=== PATIENT | female | born 1980 | race American Indian/Alaskan Native ===

== ENCOUNTER 2016-12-20 05:39 | Inpatient (IN) | payer BC, MEDICAID ==
--- NOTE | 2016-12-19 17:30 | History and Physical Report ---
History of Present Illness Date of examination: 12/18/16 Date of admission: 12/20/2016 Chief complaint: here for repeat c/s History of present illness: Pt here for repeat c/s. No c/o at this time. All risk, benefits,and alternatives were d/w pt and questions were addressed and answered. Consents signed and placed on the chart. pt does not desires to have a BTL at this time. EDC Calculations LMP: 12/26/2016 EDC Confirmation: 12/26/2016 Gestational Age: 16 3/7 weeks Past History : 3 Term Births: 1 Premature Births: 0 Living Children: 1 Para: 1 Mult. Births: 0 Prev : 1 Prev. attempt? 0 Aborta: 1 Elect. Ab: 0 Spont. Ab: 1 Ectopics: 0 # 1 Delivery date: 05/17/2003 Delivery type: Delivery location: [place] Sex: Female weight: 6-0 Comments: failure to dilate # 2 Delivery date: 08/12/2015 Weeks Gestation: 8 Delivery type: SAB Delivery location: [facility] Comments: D&C done Past Medical History: Dermoid cyst Past Surgical History: Reviewed history from 08/12/2015 and no changes required: Salpingo-oophorectomy(R) dermoid (L) partial oophorectomy dermoid D&C: (08/12/2015) Past Medical History Abnormal PAP: negative ROSE Exposure: negative Infertility: negative Uterine Anomaly: negative Uterine Surgery (not C/S): negative Other Gynecologic Problems: negative Social Hx: Patient is single Smoking History: Patient has never smoked. Infection History Personal hx. of genital herpes: yes Partner hx. of genital herpes: yes Genetic History Congenital Heart Defect: Mom: no Dad: no Duane Disease: Mom: no Dad: no Thalassemia Mom: no Dad: no Neural Tube Defect Mom: no Dad: no Down's Syndrome Mom: no Dad: no Issa-Sachs Mom: no Dad: no Sickle Cell Disease/Trait Mom: no Dad: no Hemophilia Mom: no Dad: no Muscular Dystrophy Mom: no Dad: no Cystic Fibrosis Mom: no Dad: no Bergheim Chorea Mom: no Dad: no Mental Retardation Mom: no Dad: no Fragile X Mom: no Dad: no Other Genetic/Chromosomal Disorder Mom: no Dad: no Child w/other defect Mom: no Dad: no Enviromental Exposures Xray Exposure: no Chemical/Other Exposure: no Exposure to Cat Liter: no Active Medications (reviewed today): VITAMIN TABS ( VIT-FE FUMARATE-FA TABS) Current Allergies: No known allergies Past History Past Medical History: other (dermoid cyst) Past Surgical History: section, other (oopherectomy x1, cystectomy, c/ s x1) 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 Family/Genetic History: other (see hpi) Social history: no significant social history, - Obstetrical History Expected Date of Delivery: 12/26/16 Actual Gestation: 39 Week(s) 0 Day(s) : 3 Para: 1 Spontaneous Abortions: 1 Number of Living Children: 1 Medications and Allergies Allergies Allergy/AdvReac Type Severity Reaction Status Date / Time No Known Allergies Allergy Verified 07/11/13 10:49 Home Medications Medication Instructions Recorded Confirmed Last Taken Type No Known Home Medications [No 08/12/15 08/12/15 Unknown History Reported Home Medications] Active Meds: Active Medications Citric Acid/Sodium Citrate (Bicitra) 30 ml PO ONCE ONE Stop: 12/20/16 05:01 Famotidine (Pepcid) 20 mg IV ONCE ONE Stop: 12/20/16 05:01 Cefazolin Sodium (Ancef/Sterile Water 2 Gm/20 Ml) 2 gm in 20 mls @ 80 mls/hr IV PREOP NR PRN Reason: Protocol Lactated Ringer's (Lactated Ringers) 1,000 mls @ 2,250 mls/hr IV PREOP YO Stop: 12/20/16 18:27 Review of Systems All systems: negative - Physical Exam Cardiovascular: Normal S1, Normal S2 Lungs: Positive: Normal air movement Abdomen: Positive: normal appearance, soft. Negative: distention, tenderness, guarding Genitourinary (Female): Positive: other (deferred) Extremities: Positive: normal. Negative: tenderness, edema - Obstetrical FHR: auscultation normal Results All other labs normal. Assessment and Plan - Patient Problems (1) 39 weeks gestation of Status: Acute (2) Previous section complicating Status: Acute Plan to address problem: -admit -prepare for c/s
[~2016-12-20 05:39] MED LIST: ANCEF/STERILE WATER 2 GM/20 ML 2 GM/20 ML SYRINGE IV NR
[2016-12-20] MEDS ORDERED: REGLAN IV ONE (05:45)
[2016-12-20] MEDS ORDERED: PEPCID IV ONE (05:45)
[2016-12-20] MEDS ORDERED: BICITRA PO ONE (05:45)
[2016-12-20] MEDS ORDERED: PITOCin/NS 20 UNIT/1000ML DRIP 20 UNITS/1,000 ML BAG IV SCH (06:00)
[2016-12-20 06:31] LABS: Basophils % (Auto) 0.2 % (0.0-1.8); Eosinophils % (Auto) 1.8 % (0.0-4.3); Hematocrit 37.1 % (30.3-42.9); Hemoglobin 12.5 gm/dl (10.1-14.3); Mean Corpuscular HGB Conc 34 % (30-34); Mean Corpuscular Hemoglobin 33 pg (28-32); Mean Corpuscular Volume 99 fl (79-97); Platelet Count 138 K/mm3 (140-440); Red Blood Count 3.76 M/mm3 (3.65-5.03); Red Cell Distribution Width 14.7 % (13.2-15.2); White Blood Count 7.2 K/mm3 (4.5-11.0)
[2016-12-20] MEDS: LACTATED RINGERS 1,000 ML IV SCH ×3 (06:56→07:37)
--- NOTE | 2016-12-20 07:17 | Anesthesia Consultation ---
Anesthesia Consult and Med Hx Date of service: 12/20/16 - Airway Anesthetic Teeth Evaluation: Good ROM Head & Neck: Adequate Mental/Hyoid Distance: Adequate Mallampati Class: Class II Intubation Access Assessment: Probably Good - Pre-Operative Health Status ASA Pre-Surgery Classification: ASA2 Proposed Anesthetic Plan: Epidural, Spinal - Pulmonary Hx Smoking: Yes Hx Asthma: No (Pt uses inhaler when sick) COPD: No Hx Pneumonia: No Hx Sleep Apnea: No - Cardiovascular System Hx Hypertension: No - Central Nervous System Hx Seizures: No Hx Psychiatric Problems: No - Endocrine Hx Renal Disease: No Hx End Stage Renal Disease: No Hx Hypothyroidism: No Hx Hyperthyroidism: No - Hematic Hx Anemia: No Hx Sickle Cell Disease: No - Other Systems Hx Cancer: No
--- NOTE | 2016-12-20 07:18 | Anesthesia Day of Surgery ---
Anesthesia Day of Surgery - Day of Surgery Patient Examined: Yes Patient H&P Reviewed: Yes Patient is NPO: Yes
[2016-12-20] MEDS ORDERED: MORPHINE ONE (07:43)
[2016-12-20] MEDS ORDERED: WATER FOR IRRIG STERILE IR ONE (07:50)
[2016-12-20] MEDS ORDERED: NACL 0.9% IR ONE (07:50)
[2016-12-20] MEDS ORDERED: BENADRYL IV PRN (08:00)
[2016-12-20] MEDS ORDERED: ZOFRAN IV PRN (08:00)
[2016-12-20] MEDS ORDERED: SODIUM CHLORIDE FLUSH SYRINGE 10 ML IV PRN (08:00)
[2016-12-20] MEDS ORDERED: NARCAN 0.4 MG/1 ML IV PRN (08:00)
[2016-12-20] MEDS ORDERED: PHENERGAN PR PRN (08:00)
[2016-12-20] MEDS ORDERED: NACL 0.9% 1000 ML 1,000 ML ONE (08:48)
[2016-12-20] MEDS ORDERED: NEO SYNEPHRINE/NS Syringe(OR USE) IV ONE (09:00)
--- NOTE | 2016-12-20 09:00 | Operative Report ---
Operative Report Operative Report: Date of procedure: 12/20/2016 Pre-operative diagnosis: 39 weeks gestation Previous section Post-operative diagnosis: Same Procedure name(s): Repeat low transverse section via Pfannenstiel skin incision Surgeon: Dr. Miguel Economic Research Assistant: RIGO Anesthesia: Epidural EBL: 600 mL Urine output: 250 mL of clear urine out at the end of the procedure Fluids: 1500 mL Findings: Liveborn male weight 7 lbs. 14 oz. Apgars of 8 and 9 at one and 5 minutes 2 cm pedunculated fibroid on anterior surface of the uterus Grossly normal fallopian tubes and ovaries bilaterally Indications: Patient presents for repeat section. All risks benefits and alternatives were discussed with the patient. Consents were signed and placed on the chart. Procedure: Patient was taking to the operating room. Patient was then prepped and draped in sterile fashion after anesthesia was found to be adequate. A low transverse skin incision was made with the scalpel through previous incisional scar and carried down to the underlying layer of fascia with the Bovie. The fascia was then incised in the midline and this incision was extended bilaterally with the Bovie. The superior aspect of the fascia was grasped with Jillian clamps tented upward and dissected off of the anterior rectus muscles with the scalpel. In similar fashion the inferior aspect of the fascia was grasped with Jillian clamps tented upward and dissected off of the anterior rectus muscles. The rectus muscles were then sharply divided in the midline. The peritoneum was identified and entered into sharply. The Baljeet retractor was placed The bladder blade was placed. A lower transverse uterine incision was made with the scalpel and extended bilaterally with the bandage scissors. Artificial rupture of membranes was performed yielding clear amniotic fluid. The 's head was then delivered atraumatically. The anterior shoulder and rest of infant delivered without difficulty. The umbilical cord was clamped x2. The cord was cut. The was then placed in sterile bassinet. The cord blood not was collected. The placenta was manually extracted in its entirety. The uterus was exteriorized and cleared of all clots and debris. The uterine incision was closed using 0 Vicryl in a running locking fashion. [id number] sutures were used along the incision line to secure excellent hemostasis. Tisseel was placed along the incision with excellent hemostasis noted. The posterior cul-de-sac was copiously irrigated. The uterus was returned to the abdomen. The gutters were also irrigated. The anterior rectus muscles were reapproximated using 3-0 Vicryl. The anterior rectus fascia was reapproximated using 0 Vicryl in a running fashion. The subcuticular fat was reapproximated using 2-0 Vicryl in a running fashion. The skin was reapproximated with 4-0 Monocryl in a subcuticular stitch. The patient tolerated the procedure well. Sponge lap and needle counts were all correct x3. Patient was taken to the recovery room awake and in stable condition.
[2016-12-20] MEDS ORDERED: TORADOL IV PRN (09:30)
[2016-12-20] MEDS ORDERED: LANSINOH TP PRN (09:30)
[2016-12-20] MEDS ORDERED: TUCKS PAD TP PRN (09:30)
[2016-12-20] MEDS: DILAUDID IV PRN (11:55)
[2016-12-20] MEDS: ANCEF/NS 1 GM/50 ML 1 GM/50 ML BAG IV SCH ×2 (16:00→23:54)
[2016-12-20] MEDS ORDERED: D5LR 1,000 ML IV ONE (16:10)
[2016-12-20] MEDS ORDERED: D5LR 1,000 ML IV SCH (19:00)
[2016-12-20 21:20] LABS: Hematocrit 34.6 % (30.3-42.9); Hemoglobin 11.8 gm/dl (10.1-14.3)
[2016-12-21] MEDS: DILAUDID IV PRN (00:09)
[2016-12-21] MEDS ORDERED: BENADRYL PO PRN (02:42)
[2016-12-21] MEDS ORDERED: BENADRYL PO ONE (03:00)
[2016-12-21] MEDS ORDERED: BOOSTRIX IM ONE (06:00)
--- NOTE | 2016-12-21 06:56 | Progress Note ---
Assessment and Plan - Patient Problems (1) delivery delivered Onset Date: ~12/20/16 Current Visit: Yes Status: Acute Plan to address problem: pt w/o complaint VSS FF below umb Lochia small Dressing D&I H&H drop r/t blood loss from delivery No evidence anemia Doing well s/p repeat c/s P: Continue pathway Advance diet and activity as tolerated Subjective - Subjective Date of service: 12/21/16 (pt resting w/o complaint) Principal diagnosis: Day # 1 s/p repeat section Patient reports: appetite normal, voiding normally, pain well controlled, ambulating normally [place]: doing well Objective - Vital Signs Latest vital signs: Vital Signs Temp Pulse Resp BP BP Pulse Ox 12/21/16 01:05 98.3 F 60 18 100/67 12/20/16 21:20 97.9 F 61 18 102/61 12/20/16 16:45 97.9 F 78 20 100/69 12/20/16 10:15 97.9 F 58 L 20 99/64 12/20/16 10:09 90 107/69 12/20/16 10:00 57 L 10 L 101/65 96 12/20/16 09:55 56 L 13 103/62 99 12/20/16 09:49 58 L 9 L 103/65 99 12/20/16 09:43 56 L 13 109/57 100 12/20/16 09:37 67 10 L 109/67 99 12/20/16 09:31 64 10 L 107/64 99 12/20/16 09:25 73 10 L 111/65 100 12/20/16 09:20 68 12 108/60 100 12/20/16 09:15 65 14 105/60 97 12/20/16 09:10 65 14 107/60 98 12/20/16 09:05 68 15 105/55 97 12/20/16 09:00 99 12/20/16 08:58 97.6 F 66 16 89/47 100 12/20/16 07:10 80 97 12/20/16 07:05 76 97 12/20/16 07:00 79 94 12/20/16 06:55 84 97 Intake and Output 12/20/16 12/20/16 12/21/16 14:59 22:59 06:59 Intake Total 3337.5 650 Output Total 350 1500 Balance 2987.5 -850 Intake: IV 3337.5 50 ANCEF/NS 1 GM/50 ML 1 gm 50 In 50 ml @ 100 mls/hr IV Q8H YO Rx#:[id number] Lactated Ringers 1,000 ml 1537.5 @ 2250 mls/hr IV PREOP YO Rx#:[id number] Oral 600 Output: Urine 350 1500 Indwelling Catheter 1500 Other: Total, Intake Amount 240 Total, Output Amount 900 Estimated Blood Loss 600 - Exam Breasts: Present: normal Cardiovascular: Present: Regular rate Lungs: Present: Normal air movement Abdomen: Present: normal appearance, soft, normal bowel sounds Uterus: Present: normal, fundal height below umbilicus Extremities: Present: normal Deep Tendon Reflex Grade: Normal +2 Incision: Present: normal, dry, intact, dressed (to be removed today)
[2016-12-21] MEDS: MOTRIN PO PRN ×2 (10:14→16:22)
[2016-12-21] MEDS: NORCO 5/325 PO PRN ×2 (10:14→16:21)
--- NOTE | 2016-12-21 14:16 | Progress Note ---
Subjective Date of service: 12/21/16 Principal diagnosis: Day # 1 s/p repeat section Interval history: 1st POD after Patient is in the bed, comfortable. Pain is well controlled with pain meds. Ambulated well. No residual neurological deficit. No pruritus. No anesthesia complications Objective - Constitutional Vitals: Vital Signs - 12hr 12/21/16 12/21/16 12/21/16 05:30 08:30 12:20 Temperature 98.7 F 98.6 F 98.4 F Pulse Rate 59 L 60 62 Respiratory 18 18 18 Rate Blood Pressure 102/60 94/61 96/70 [Right] - Labs CBC & Chem 7: 12/20/16 20:51
[2016-12-22] MEDS: MOTRIN PO PRN ×3 (00:07→12:02)
[2016-12-22] MEDS: NORCO 5/325 PO PRN ×3 (00:07→12:02)
--- NOTE | 2016-12-22 07:45 | Progress Note ---
Assessment and Plan patient doing well, with good latch. lochis scant, H&H stable, VSSAF. May d/c home today if desires. routine f/u in office 1 week. - Patient Problems (1) delivery delivered Onset Date: ~12/20/16 Current Visit: Yes Status: Acute Subjective - Subjective Date of service: 12/22/16 Principal diagnosis: Day # 2 s/p repeat section Patient reports: appetite normal, voiding normally, pain well controlled, flatus , ambulating normally, no dizzy ambulation, no nauseated [place]: doing well, nursing well Objective - Vital Signs Latest vital signs: Vital Signs Temp Pulse Resp BP 12/22/16 00:10 98.2 F 58 L 18 111/70 12/21/16 16:40 98.1 F 52 L 18 110/72 12/21/16 12:20 98.4 F 62 18 96/70 12/21/16 08:30 98.6 F 60 18 94/61 Intake and Output 12/21/16 12/21/16 12/22/16 15:59 23:59 07:59 Intake Total 240 120 240 Output Total 500 Balance -260 120 240 Intake: Oral 240 120 Intake, Free Water 240 Output: Urine 500 Void 500 Other: Total, Intake Amount 120 120 Total, Output Amount 300 # Voids Void 1 1 1 - Exam Breasts: Present: normal, Cardiovascular: Present: Regular rate Lungs: Present: Clear to auscultation, Normal air movement Abdomen: Present: normal appearance, soft, normal bowel sounds Vulva: both: normal Uterus: Present: normal, firm, fundal height at umbilicus Extremities: Present: normal Incision: Present: normal, dry, intact
--- NOTE | 2016-12-22 07:47 | Discharge Summary ---
Providers - Providers Date of Admission: 12/20/16 05:39 Date of discharge: 12/22/16 Attending physician: PEDRO ANAND Primary care physician: PEDRO ANAND Hospitalization Reason for admission: section Delivery: Procedure: repeat low transverse Incision: normal, dry, intact Other procedures: none complications: none Discharge diagnosis: IUP at term delivered baby: male Hospital course: uncomplicated c/s Condition at discharge: Good Disposition: DC-01 TO HOME OR SELFCARE - Discharge Diagnoses (1) delivery delivered Status: Acute Plan - Discharge Medications Prescriptions: Ibuprofen [Motrin 800 MG tab] 800 mg PO Q8HR PRN #30 tablet PRN Reason: Pain Lidocain2.5%/Prilocai2.5% [Emla] 1 applic TP ONCE #1 tube oxyCODONE /ACETAMINOPHEN [Percocet 5/325] 1 tab PO Q4HR #30 tab - Provider Discharge Summary Activity: routine, no sex for 6 weeks, no heavy lifting 4 weeks, no strenuous exercise Diet: routine Instructions: routine Additional instructions: [] Smoking cessation referral if applicable(refer to patient education folder for contact #) [] Refer to [facility]'s [facility] Booklet Call your doctor immediately for: * Fever > 100.5 * Heavy vaginal bleeding ( >1 pad per hour) * Severe persistent headache * Shortness of breath * Reddened, hot, painful area to leg or breast * Drainage or odor from incision. * Keep incision clean and dry at all times and follow doctor's instructions regarding bathing/showering - Follow up plan Follow up: PEDRO ANAND MD [Primary Care Provider] - 7 Days (Congratulations!! Please call [phone] to schedule your incision check in 1 week and your son's circumcision in 1 week. Bring EMLA cream to your son's appointment and await further instructions. Call for any questions or concerns.)
[2016-12-22 09:28] VITALS: BP 113/80
== END 2016-12-22 16:20 | disposition home or self-care (01) | DRG 765 ==
LOC: APU 05:39 → OB 10:11
PROVIDERS: ADMIT Obstetrics & Gynecology; ATTEND Obstetrics & Gynecology
PROC: 10D00Z1 Extraction of Products of Conception, Low, Open Approach (ICD-10-PCS; principal; 2016-12-20)
PROC: 10907ZC Drainage of Amniotic Fluid, Therapeutic from Products of Conception, Via Natural or Artificial Opening (ICD-10-PCS; 2016-12-20)
DX: O34.211 Maternal care for low transverse scar from previous cesarean delivery (principal); R71.0 Precipitous drop in hematocrit; Z37.0 Single live birth; Z3A.39 39 weeks gestation of pregnancy; Z87.891 Personal history of nicotine dependence; O34.13 Maternal care for benign tumor of corpus uteri, third trimester; D25.9 Leiomyoma of uterus, unspecified
CPT/HCPCS: 36415; 85014; 85018; 85025; 86850; 86900; 86901; 99211; C9250; G0463; J0690; J1170; J1885; J2270; J2370; J2590; J2765; J7030; J7120; J7121